=== PATIENT | female | born 1960 | race Caucasian/White ===

== ENCOUNTER → 2017-01-12 | Outpatient (CLI) | payer BC | LOC: MC.RAD 08:00 | DX: Z12.31 Encounter for screening mammogram for malignant neoplasm of breast (principal) ==

== ENCOUNTER → 2018-01-22 | Outpatient (CLI) | payer BC | LOC: MC.RAD 11:33 | DX: Z12.31 Encounter for screening mammogram for malignant neoplasm of breast (principal) ==

== ENCOUNTER → 2019-02-25 | Outpatient (CLI) | payer BC | LOC: MC.RAD 09:16 | DX: Z12.31 Encounter for screening mammogram for malignant neoplasm of breast (principal) ==

== ENCOUNTER → 2020-02-28 | Outpatient (CLI) | payer BC | LOC: MC.RAD 09:34 | DX: Z12.31 Encounter for screening mammogram for malignant neoplasm of breast (principal) ==

== ENCOUNTER 2021-02-26 08:22 | Day surgery (SDC) | payer BC ==
[~2021-02-26] VITALS: Ht 175.3 cm; Wt 73.8 kg
[2021-02-26] MEDS ORDERED: MASON NATURAL1200 MG PO (08:59)
[2021-02-26] MEDS ORDERED: CALCIUM 600/VIT1 CA1 PO (09:00)
[2021-02-26] MEDS ORDERED: VITAMIND3 5000 PO (09:03)
[2021-02-26] MEDS ORDERED: NIACIN 64 MG-501 TA1 PO (09:04)
[2021-02-26] MEDS ORDERED: MELATONIN5 M1 SL (09:04)
[2021-02-26] MEDS ORDERED: ASPIRIN E.C. 8181 MG PO (09:04)
[2021-02-26 09:21] VITALS: BP 110/78; PULSE 83; TEMP 98.6
--- NOTE | 2021-02-26 09:30 | NUR ---
Patient admitted to bay #[facility] without the use of assistive devices. Consent reviewed and signed with patient. First and last name + verified with patient. IV started in R hand on second attempt. Call peña is at bedside. SEE PHYSICAL ASSESSMENT.
[2021-02-26 10:00] VITALS: BP 84/60; PULSE 77; TEMP 98.3
[2021-02-26 10:15] VITALS: BP 110/70; PULSE 64
[2021-02-26 10:30] VITALS: BP 115/77; PULSE 67
--- NOTE | 2021-02-26 10:59 | NUR ---
1000- Pt returns from endo procedure via cart to [facility]. Pt ambulates from cart to recliner with RN assist. Monitors on and alarms set. Call light within reach. Pt alert and oriented. Pt requests crannberry juice. Pt denies any pain or nausea. 1015- Pt taking food and drink well. No complications not. 1030- Discharge instructions given to pt. All questions answered to patient and 's satisfaction. Handed to pt education material and discharge information. 1059- Pt transferred out of the hospital via wheelchair and RN assist, to private vehicle driven by .
== END 2021-02-26 10:59 | disposition home or self-care (01) ==
LOC: SDCO 08:22
DX: Z12.11 Encounter for screening for malignant neoplasm of colon (principal); M19.042 Primary osteoarthritis, left hand; M19.041 Primary osteoarthritis, right hand; Z79.82 Long term (current) use of aspirin; Z79.899 Other long term (current) drug therapy; Z83.71 Family history of colonic polyps
CPT/HCPCS: J2704; J7120

== ENCOUNTER → 2021-04-22 | Outpatient (CLI) | payer BC ==
[~2021-04-22] MED LIST: ASPIRIN E.C. 8181 MG PO; CALCIUM 600/VIT1 CA1 PO; MASON NATURAL1200 MG PO; MELATONIN5 M1 SL; NIACIN 64 MG-501 TA1 PO; VITAMIND3 5000 PO
== END ==
LOC: MC.RAD 09:33
DX: Z12.31 Encounter for screening mammogram for malignant neoplasm of breast (principal)

== ENCOUNTER → 2023-04-27 | Outpatient (CLI) | payer BC | LOC: MC.RAD 12:47 | DX: Z12.31 Encounter for screening mammogram for malignant neoplasm of breast (principal) ==